=== PATIENT | male | born 1970 | race Two or more races ===

== ENCOUNTER 2023-09-05 21:12 | Inpatient (IN) | payer OTHER ==
[~2023-09-05] VITALS: Ht 172.7 cm; Wt 179.2 kg
[2023-09-05 22:55] LABS: BASOPHILS # (AUTO) 0.1 K/uL (0.0-0.2); BASOPHILS % (AUTO) 0.5 % (0.0-2.0); EOSINOPHILS # (AUTO) 0.2 K/uL (0.0-0.7); EOSINOPHILS % (AUTO) 1.1 % (0.0-6.0); HEMATOCRIT 36 % (39-51); HEMOGLOBIN 11.9 g/dL (13.5-17.5); LYMPHOCYTES # (AUTO) 1.5 K/uL (0.8-4.8); LYMPHOCYTES % (AUTO) 8.8 % (20.0-44.0); MEAN CORPUSCULAR HEMOGLOBIN 29 PG (26.0-33.0); MEAN CORPUSCULAR HGB CONC 33 g/dl (31.0-36.0); MEAN CORPUSCULAR VOLUME 88 fL (80-96); MONOCYTES # (AUTO) 1.6 K/uL (0.1-1.30); MONOCYTES % (AUTO) 9.9 % (2.0-12.0); NEUTROPHILS # (AUTO) 13.3 K/uL (1.8-8.9); NEUTROPHILS % (AUTO) 79.7 % (43.0-81.0); PLATELET COUNT (AUTO) 268 K/uL (150-450); RED BLOOD CELL COUNT(AUTO) 4.11 MIL/uL (4.5-6.0); RED CELL DISTRIBUTION WIDTH 15.6 % (11.5-15.0); WHITE BLOOD COUNT (AUTO) 16.6 K/uL (4.3-11.0)
[2023-09-05 23:05] LABS: INR 1.13 (0.91-1.10); PARTIAL THROMBOPLASTIN TIME 28.2 SEC (24.3-34.3); PROTHROMBIN TIME 11.9 SECS (9.2-11.1)
[2023-09-05 23:09] LABS: CALCIUM, SERUM 8.5 mg/dL (8.5-10.1); CARBON DIOXIDE 35 mmol/L (21-32); CHLORIDE 91 mmol/L (98-107); GLUCOSE 341 mg/dL (74-106); POTASSIUM 4.5 mmol/L (3.5-5.1); SODIUM SERUM 124 mmol/L (136-145); UREA NITROGEN, BLOOD 22 mg/dL (7-18)
[2023-09-05 23:16] LABS: LACTIC ACID 1.4 mmol/L (0.4-2.0)
[2023-09-05 23:22] LABS: ALANINE AMINOTRANSFERASE 22 U/L (12-78); ALKALINE PHOSPHATASE 170 U/L (46-116); ASPARTATE AMINOTRANSFERASE 33 U/L (15-37); BILIRUBIN,DIRECT 0.2 mg/dL (0.0-0.2); BILIRUBIN,TOTAL 0.6 mg/dL (0.2-1.0); TOTAL PROTEIN, SERUM 7.8 g/dL (6.4-8.2)
[2023-09-05 23:25] LABS: ALBUMIN 1.3 g/dL (3.4-5.0)
[2023-09-05] MEDS ORDERED: IV NS 0.9% 1,000 ML BAG IV ONE (23:30)
[2023-09-05] MEDS ORDERED: VANCOMYCIN 1 GM in IV D5W 250 ML IV ONE (23:30)
[2023-09-05] MEDS ORDERED: CEFEPIME 1 GM in IV D5W 50 ML IV ONE (23:30)
[2023-09-05] MEDS ORDERED: LIDOCAINE HCL/PF 1% 30 ML VIAL TP ONE (23:30)
[2023-09-05] MEDS ORDERED: LIDOCAINE 0.5% HCL 50 ML VIAL ONE (23:33)
[2023-09-05] MEDS ORDERED: LIDOCAINE HCL/MPF 1% 30 ML VIAL IJ ONE (23:35)
[2023-09-05] MEDS ORDERED: CEFEPIME 1 GM VIAL ONE (23:38)
[2023-09-05] MEDS ORDERED: VANCOMYCIN 1 GM /D5W 250 ML PB IV ONE (23:39)
[2023-09-05 23:53] LABS: APPEARANCE,URINE CLOUDY (CLEAR); BILIRUBIN,URINE NEGATIVE (NEGATIVE); BLOOD, URINE 2+ Ery/uL (NEGATIVE); COLOR,URINE DARK YELLOW (YELLOW); KETONES,URINE NEGATIVE (NEGATIVE); LEUKOCYTE ESTERASE ,URINE NEGATIVE (NEGATIVE); NITRITE, URINE POSITIVE (NEGATIVE); PH,URINE 5.5 (5.0-8.0); PROTEIN,URINE 3+ mg/dl (NEGATIVE); UGLUCOSE 1+ mg/dL (NEGATIVE)
[2023-09-05 23:57] LABS: ADD URINE CULTURE YES; BACTERIA,URINE Moderate /HPF (None Seen); SQUAMOUS EPITHELIAL CELL,UR Rare /HPF (None Seen); WBC,URINE 21-50 /HPF (0-3)
[2023-09-06] MEDS ORDERED: MAGNESIUM HYDROXIDE 30 ML UDC PO PRN (00:30)
[2023-09-06] MEDS ORDERED: MAG HYDROX/AL HYDROX/SIMETH 30 ML UDC PO PRN (00:30)
[2023-09-06] MEDS ORDERED: ACETAMINOPHEN 325 MG TABLET PO PRN (00:30)
[2023-09-06] MEDS ORDERED: ONDANSETRON HCL/PF 4 MG/2 ML VIAL IVP PRN (00:30)
[2023-09-06] MEDS ORDERED: Z GUARD REMEDY 4 OZ OINT TP PRN (00:30)
[2023-09-06] MEDS ORDERED: DEXTROSE 50%-WATER 50 ML DISP.SYRIN IV PRN ×2 (00:30→12:00)
[2023-09-06] MEDS ORDERED: TEMAZEPAM 15 MG CAPSULE PO PRN (00:30)
[2023-09-06 01:30] VITALS: BP 125/67; TEMP 100.2; O2SAT 97
[2023-09-06 01:40] VITALS: BP 125/67; TEMP 100.2; O2SAT 97
[2023-09-06] MEDS ORDERED: VANCOMYCIN 1 GM in IV D5W 250ml IV ONE (02:00)
[2023-09-06] MEDS ORDERED: VANCOMYCIN 1 GM /D5W 250 ML PB IV ONE (04:51)
[2023-09-06] MEDS: BLOOD SUGAR DIAGNOSTIC 1 EACH STRIP IN SCH ×5 (06:19→21:38)
[2023-09-06] MEDS: INSULIN REGULAR, HUMAN 100 UNIT/ML 3 ML VIAL SQ PRN ×3 (06:22→16:33)
[2023-09-06] MEDS: PANTOPRAZOLE 40 MG TABLET.DR PO SCH (07:42)
[2023-09-06] MEDS: CEFEPIME 1 GM in IV D5W 50 ML IV SCH ×2 (08:49→20:41)
[2023-09-06] MEDS: VANCOMYCIN 1.25 GM in IV D5W 250 ML IV SCH ×2 (09:38→21:25)
[2023-09-06] MEDS: HYDROCODONE/APAP 10/325MG TABLET PO PRN (09:55)
[2023-09-06] MEDS ORDERED: LISI20TA30 PO (10:12)
[2023-09-06] MEDS ORDERED: FURO40TA5 PO (10:12)
[2023-09-06] MEDS ORDERED: GABA600T12 PO (10:12)
[2023-09-06] MEDS ORDERED: OMEP40CA21 PO (10:12)
[2023-09-06] MEDS ORDERED: METF-440 PO (10:12)
[2023-09-06] MEDS ORDERED: CARV6.252 PO (10:12)
[2023-09-06] MEDS ORDERED: ALBU18HF2 INH (10:12)
[2023-09-06] MEDS ORDERED: BUPR200T3 PO (10:12)
[2023-09-06] MEDS ORDERED: FLUO20CA36 PO (10:12)
[2023-09-06] MEDS ORDERED: METH10TA2 PO (10:12)
[2023-09-06] MEDS ORDERED: ALBUTEROL FS 2.5 MG/3 ML VIAL.NEB NEB PRN (12:00)
[2023-09-06] MEDS: CARVEDILOL 6.25 MG TABLET PO SCH (16:18)
[2023-09-06] MEDS: GABAPENTIN 300 MG CAPSULE PO SCH (16:20)
[2023-09-06] MEDS: IV NS 0.9% 1,000 ML IV PRN (18:04)
[2023-09-06 20:42] VITALS: BP 100/62; TEMP 97.7; O2SAT 96
[2023-09-06] MEDS: *INSULIN REGULAR(HUMULIN R)HUM 100 UNIT/ML VIAL SQ PRN (21:44)
[2023-09-07] MEDS: IV NS 0.9% 1,000 ML IV PRN (05:18)
[2023-09-07] MEDS: BLOOD SUGAR DIAGNOSTIC 1 EACH STRIP IN SCH ×4 (06:36→21:00)
[2023-09-07] MEDS: INSULIN REGULAR, HUMAN 100 UNIT/ML 3 ML VIAL SQ PRN ×3 (06:37→16:50)
[2023-09-07] MEDS ORDERED: Medication Not On Formulary EA (Omeprazole 40 MG) PO SCH (07:30)
[2023-09-07 07:35] LABS: BASOPHILS % (AUTO) 0.4 % (0.0-2.0); EOSINOPHILS # (AUTO) 0.2 K/uL (0.0-0.7); EOSINOPHILS % (AUTO) 2.5 % (0.0-6.0); HEMATOCRIT 31 % (39-51); HEMOGLOBIN 10.5 g/dL (13.5-17.5); LYMPHOCYTES # (AUTO) 1.3 K/uL (0.8-4.8); MEAN CORPUSCULAR HEMOGLOBIN 30 PG (26.0-33.0); MEAN CORPUSCULAR HGB CONC 34 g/dl (31.0-36.0); MEAN CORPUSCULAR VOLUME 88 fL (80-96); MONOCYTES % (AUTO) 9.9 % (2.0-12.0); NEUTROPHILS # (AUTO) 7.3 K/uL (1.8-8.9); NEUTROPHILS % (AUTO) 74.2 % (43.0-81.0); PLATELET COUNT (AUTO) 249 K/uL (150-450); RED BLOOD CELL COUNT(AUTO) 3.57 MIL/uL (4.5-6.0); RED CELL DISTRIBUTION WIDTH 15.1 % (11.5-15.0); WHITE BLOOD COUNT (AUTO) 9.8 K/uL (4.3-11.0)
[2023-09-07] MEDS: PANTOPRAZOLE 40 MG TABLET.DR PO SCH (07:48)
[2023-09-07 08:00] VITALS: BP 118/62; TEMP 97.7; O2SAT 96
[2023-09-07 08:03] LABS: THYROID STIMULATING HORMONE 2.926 uIU/mL (0.358-3.74); URIC ACID 6.1 mg/dL (2.6-7.2)
[2023-09-07 08:16] LABS: CREATININE 1.5 mg/dL (0.6-1.3); MAGNESIUM 1.5 mg/dL (1.8-2.4); PHOSPHORUS 4.1 mg/dL (2.5-4.9); POTASSIUM 4.7 mmol/L (3.5-5.1)
[2023-09-07] MEDS ORDERED: FUROSEMIDE 40 MG TABLET PO SCH (09:00)
[2023-09-07] MEDS ORDERED: LISINOPRIL (20MG) 20 MG TABLET PO SCH (09:00)
[2023-09-07] MEDS ORDERED: FLUOXETINE HCL 20 MG CAPSULE PO SCH (09:00)
[2023-09-07] MEDS: CEFEPIME 1 GM in IV D5W 50 ML IV SCH ×2 (09:08→20:06)
[2023-09-07] MEDS: GABAPENTIN 300 MG CAPSULE PO SCH ×2 (09:08→16:47)
[2023-09-07] MEDS: buPROPion SR 100 MG TABLET.ER PO SCH (09:09)
[2023-09-07] MEDS: METHADONE HCL 10 MG TABLET PO SCH (09:10)
[2023-09-07] MEDS: CARVEDILOL 6.25 MG TABLET PO SCH ×2 (09:10→16:47)
[2023-09-07] MEDS: NICOTINE PATCH (21MG) 21 MG PATCH.TD24 TD SCH (09:49)
[2023-09-07] MEDS ORDERED: MAGNESIUM OXIDE 400 MG TABLET PO ONE (11:00)
[2023-09-07] MEDS: HYDROCODONE/APAP 10/325MG TABLET PO PRN ×2 (11:14→23:21)
[2023-09-07 16:00] VITALS: BP 106/62; TEMP 97.7; O2SAT 97
[2023-09-07 20:00] VITALS: BP 106/60; TEMP 98.7; O2SAT 95
[2023-09-07] MEDS: *INSULIN REGULAR(HUMULIN R)HUM 100 UNIT/ML VIAL SQ PRN (21:03)
[2023-09-07] MEDS: VANCOMYCIN 1 GM in IV D5W 250 ML IV SCH (21:30)
[2023-09-08] MEDS: BLOOD SUGAR DIAGNOSTIC 1 EACH STRIP IN SCH ×4 (06:26→22:43)
[2023-09-08] MEDS: INSULIN REGULAR, HUMAN 100 UNIT/ML 3 ML VIAL SQ PRN ×3 (06:28→16:55)
[2023-09-08 06:46] LABS: BASOPHILS % (AUTO) 0.6 % (0.0-2.0); EOSINOPHILS # (AUTO) 0.2 K/uL (0.0-0.7); EOSINOPHILS % (AUTO) 2.4 % (0.0-6.0); HEMATOCRIT 29 % (39-51); HEMOGLOBIN 9.7 g/dL (13.5-17.5); LYMPHOCYTES # (AUTO) 1.4 K/uL (0.8-4.8); LYMPHOCYTES % (AUTO) 18.4 % (20.0-44.0); MEAN CORPUSCULAR HEMOGLOBIN 29 PG (26.0-33.0); MEAN CORPUSCULAR HGB CONC 34 g/dl (31.0-36.0); MEAN CORPUSCULAR VOLUME 87 fL (80-96); MONOCYTES # (AUTO) 0.9 K/uL (0.1-1.30); MONOCYTES % (AUTO) 12.5 % (2.0-12.0); NEUTROPHILS # (AUTO) 4.9 K/uL (1.8-8.9); NEUTROPHILS % (AUTO) 66.1 % (43.0-81.0); PLATELET COUNT (AUTO) 227 K/uL (150-450); WHITE BLOOD COUNT (AUTO) 7.4 K/uL (4.3-11.0)
[2023-09-08 07:32] LABS: CREATININE 1.5 mg/dL (0.6-1.3); MAGNESIUM 1.9 mg/dL (1.8-2.4); PHOSPHORUS 3.8 mg/dL (2.5-4.9); POTASSIUM 4.9 mmol/L (3.5-5.1)
[2023-09-08] MEDS: PANTOPRAZOLE 40 MG TABLET.DR PO SCH (07:59)
[2023-09-08 08:30] VITALS: BP 111/67; TEMP 97.7; O2SAT 96
[2023-09-08] MEDS: CEFEPIME 1 GM in IV D5W 50 ML IV SCH ×2 (09:23→22:06)
[2023-09-08] MEDS: NICOTINE PATCH (21MG) 21 MG PATCH.TD24 TD SCH (09:30)
[2023-09-08] MEDS: GABAPENTIN 300 MG CAPSULE PO SCH ×2 (09:30→16:55)
[2023-09-08] MEDS: buPROPion SR 100 MG TABLET.ER PO SCH (09:31)
[2023-09-08] MEDS: METHADONE HCL 10 MG TABLET PO SCH (09:32)
[2023-09-08] MEDS: CARVEDILOL 6.25 MG TABLET PO SCH ×2 (09:33→16:47)
[2023-09-08] MEDS: VANCOMYCIN 1 GM in IV D5W 250 ML IV SCH ×2 (10:10→21:00)
[2023-09-08 18:30] VITALS: BP 107/69; TEMP 97.6; O2SAT 97
[2023-09-08] MEDS: *INSULIN REGULAR(HUMULIN R)HUM 100 UNIT/ML VIAL SQ PRN (22:55)
[2023-09-09] MEDS: INSULIN REGULAR, HUMAN 100 UNIT/ML 3 ML VIAL SQ PRN ×3 (06:21→17:19)
[2023-09-09] MEDS: BLOOD SUGAR DIAGNOSTIC 1 EACH STRIP IN SCH ×4 (06:32→21:28)
[2023-09-09 07:00] VITALS: BP 118/85; TEMP 98.4; O2SAT 100
[2023-09-09 07:35] LABS: BASOPHILS # (AUTO) 0.1 K/uL (0.0-0.2); BASOPHILS % (AUTO) 0.8 % (0.0-2.0); EOSINOPHILS # (AUTO) 0.2 K/uL (0.0-0.7); EOSINOPHILS % (AUTO) 2.3 % (0.0-6.0); HEMATOCRIT 30 % (39-51); LYMPHOCYTES # (AUTO) 1.4 K/uL (0.8-4.8); LYMPHOCYTES % (AUTO) 17.9 % (20.0-44.0); MEAN CORPUSCULAR HEMOGLOBIN 29 PG (26.0-33.0); MEAN CORPUSCULAR HGB CONC 33 g/dl (31.0-36.0); MEAN CORPUSCULAR VOLUME 88 fL (80-96); MONOCYTES # (AUTO) 0.8 K/uL (0.1-1.30); MONOCYTES % (AUTO) 10.6 % (2.0-12.0); NEUTROPHILS # (AUTO) 5.3 K/uL (1.8-8.9); NEUTROPHILS % (AUTO) 68.4 % (43.0-81.0); PLATELET COUNT (AUTO) 253 K/uL (150-450); RED BLOOD CELL COUNT(AUTO) 3.41 MIL/uL (4.5-6.0); RED CELL DISTRIBUTION WIDTH 15.1 % (11.5-15.0); WHITE BLOOD COUNT (AUTO) 7.8 K/uL (4.3-11.0)
[2023-09-09] MEDS: PANTOPRAZOLE 40 MG TABLET.DR PO SCH (08:06)
[2023-09-09] MEDS: METHADONE HCL 10 MG TABLET PO SCH (08:07)
[2023-09-09 08:11] LABS: CALCIUM, SERUM 8.1 mg/dL (8.5-10.1); CREATININE 1.4 mg/dL (0.6-1.3); POTASSIUM 5.2 mmol/L (3.5-5.1)
[2023-09-09] MEDS: GABAPENTIN 300 MG CAPSULE PO SCH ×2 (08:26→17:16)
[2023-09-09] MEDS: NICOTINE PATCH (21MG) 21 MG PATCH.TD24 TD SCH (08:26)
[2023-09-09] MEDS: CEFEPIME 1 GM in IV D5W 50 ML IV SCH ×2 (08:27→22:58)
[2023-09-09] MEDS: CARVEDILOL 6.25 MG TABLET PO SCH ×2 (08:27→17:14)
[2023-09-09] MEDS: buPROPion SR 100 MG TABLET.ER PO SCH (08:27)
[2023-09-09] MEDS ORDERED: SULF1TAB48 PO (10:30)
[2023-09-09] MEDS ORDERED: CIPR-262 PO (10:30)
[2023-09-09] MEDS: VANCOMYCIN 0.75 GM in IV D5W 250 ML IV SCH ×2 (10:44→23:23)
[2023-09-09] MEDS ORDERED: LIDOCAINE 1%-EPI 1:100,000 20 ML VIAL TP STA (12:58)
[2023-09-09] MEDS: HYDROCODONE/APAP 10/325MG TABLET PO PRN (14:03)
[2023-09-09 16:00] VITALS: BP 109/74; TEMP 98.6; O2SAT 100
[2023-09-09 20:22] VITALS: BP 118/56; TEMP 99.2; O2SAT 98
[2023-09-09] MEDS: *INSULIN REGULAR(HUMULIN R)HUM 100 UNIT/ML VIAL SQ PRN (21:30)
[2023-09-10] MEDS: BLOOD SUGAR DIAGNOSTIC 1 EACH STRIP IN SCH ×4 (06:42→21:42)
[2023-09-10] MEDS: INSULIN REGULAR, HUMAN 100 UNIT/ML 3 ML VIAL SQ PRN ×4 (06:43→22:09)
[2023-09-10 08:00] VITALS: BP 87/46; TEMP 98.6; O2SAT 97
[2023-09-10] MEDS: PANTOPRAZOLE 40 MG TABLET.DR PO SCH (08:11)
[2023-09-10] MEDS: CARVEDILOL 6.25 MG TABLET PO SCH ×3 (09:00→18:25)
[2023-09-10] MEDS ORDERED: SODIUM POLYSTYRENE SULFONATE 15 G/60 ML BOTTLE PO ONE (09:00)
[2023-09-10 09:05] VITALS: BP 107/40
[2023-09-10] MEDS: NICOTINE PATCH (21MG) 21 MG PATCH.TD24 TD SCH (09:17)
[2023-09-10] MEDS: buPROPion SR 100 MG TABLET.ER PO SCH (09:17)
[2023-09-10] MEDS: GABAPENTIN 300 MG CAPSULE PO SCH ×3 (09:18→16:30)
[2023-09-10] MEDS: METHADONE HCL 10 MG TABLET PO SCH (09:19)
[2023-09-10] MEDS: CEFEPIME 1 GM in IV D5W 50 ML IV SCH (09:40)
[2023-09-10 13:11] LABS: BILIRUBIN,TOTAL 0.2 mg/dL (0.2-1.0); CALCIUM, SERUM 8.4 mg/dL (8.5-10.1); CREATININE 1.4 mg/dL (0.6-1.3); POTASSIUM 5.8 mmol/L (3.5-5.1); TOTAL PROTEIN, SERUM 7.2 g/dL (6.4-8.2)
[2023-09-10 13:26] LABS: ALBUMIN 1.2 g/dL (3.4-5.0)
[2023-09-10] MEDS: VANCOMYCIN 0.75 GM in IV D5W 250 ML IV SCH (13:58)
[2023-09-10] MEDS ORDERED: MEROPENEM 1 G in IV NS 0.9% 100 ML IV SCH (14:00)
[2023-09-10 15:46] VITALS: BP 133/62; TEMP 97.4; O2SAT 94
[2023-09-10] MEDS: HYDROCODONE/APAP 10/325MG TABLET PO PRN (18:25)
[2023-09-10 20:00] VITALS: BP 132/61; TEMP 98.2; O2SAT 98
[2023-09-10] MEDS: MEROPENEM 1 G in IV NS 0.9% 100 ML IV SCH (20:24)
[2023-09-11] MEDS ORDERED: VANCOMYCIN 0.75 GM in IV D5W 250 ML IV SCH (02:00)
[2023-09-11] MEDS ORDERED: VANCOMYCIN 500 MG in IV D5W 100ml IV SCH (02:00)
[2023-09-11] MEDS: INSULIN REGULAR, HUMAN 100 UNIT/ML 3 ML VIAL SQ PRN ×4 (06:37→21:19)
[2023-09-11] MEDS: BLOOD SUGAR DIAGNOSTIC 1 EACH STRIP IN SCH ×4 (06:43→21:18)
[2023-09-11 07:21] LABS: BASOPHILS % (AUTO) 0.3 % (0.0-2.0); EOSINOPHILS # (AUTO) 0.2 K/uL (0.0-0.7); EOSINOPHILS % (AUTO) 2.6 % (0.0-6.0); HEMATOCRIT 31 % (39-51); HEMOGLOBIN 10.6 g/dL (13.5-17.5); LYMPHOCYTES # (AUTO) 1.8 K/uL (0.8-4.8); LYMPHOCYTES % (AUTO) 24.6 % (20.0-44.0); MEAN CORPUSCULAR HEMOGLOBIN 30 PG (26.0-33.0); MEAN CORPUSCULAR HGB CONC 34 g/dl (31.0-36.0); MEAN CORPUSCULAR VOLUME 89 fL (80-96); MONOCYTES # (AUTO) 0.8 K/uL (0.1-1.30); MONOCYTES % (AUTO) 10.1 % (2.0-12.0); NEUTROPHILS # (AUTO) 4.6 K/uL (1.8-8.9); NEUTROPHILS % (AUTO) 62.4 % (43.0-81.0); PLATELET COUNT (AUTO) 254 K/uL (150-450); RED BLOOD CELL COUNT(AUTO) 3.53 MIL/uL (4.5-6.0); RED CELL DISTRIBUTION WIDTH 15.5 % (11.5-15.0); WHITE BLOOD COUNT (AUTO) 7.4 K/uL (4.3-11.0)
[2023-09-11 07:30] VITALS: BP 137/72; TEMP 97.9; O2SAT 97
[2023-09-11] MEDS: PANTOPRAZOLE 40 MG TABLET.DR PO SCH (08:10)
[2023-09-11] MEDS: METHADONE HCL 10 MG TABLET PO SCH (08:10)
[2023-09-11] MEDS: GABAPENTIN 300 MG CAPSULE PO SCH ×2 (08:10→17:27)
[2023-09-11] MEDS: buPROPion SR 100 MG TABLET.ER PO SCH (08:10)
[2023-09-11] MEDS: NICOTINE PATCH (21MG) 21 MG PATCH.TD24 TD SCH (08:10)
[2023-09-11] MEDS: HYDROCODONE/APAP 10/325MG TABLET PO PRN ×4 (08:11→21:25)
[2023-09-11] MEDS: CARVEDILOL 6.25 MG TABLET PO SCH ×2 (08:12→17:26)
[2023-09-11 08:18] LABS: CALCIUM, SERUM 8.6 mg/dL (8.5-10.1); CREATININE 1.1 mg/dL (0.6-1.3); POTASSIUM 5.8 mmol/L (3.5-5.1)
[2023-09-11 10:00] VITALS: BP 137/72; TEMP 97.9; O2SAT 97
[2023-09-11] MEDS: MEROPENEM 1 G in IV NS 0.9% 100 ML IV SCH ×2 (15:02→20:27)
[2023-09-11 16:00] VITALS: BP 124/72; TEMP 98.2; O2SAT 97
[2023-09-11 22:42] VITALS: O2SAT 98
[2023-09-11 22:52] VITALS: O2SAT 100
[2023-09-12] MEDS: BLOOD SUGAR DIAGNOSTIC 1 EACH STRIP IN SCH ×4 (06:37→22:02)
[2023-09-12] MEDS: INSULIN REGULAR, HUMAN 100 UNIT/ML 3 ML VIAL SQ PRN ×2 (06:38→13:09)
[2023-09-12 07:07] LABS: CALCIUM, SERUM 8.5 mg/dL (8.5-10.1); CREATININE 1.3 mg/dL (0.6-1.3); POTASSIUM 5.8 mmol/L (3.5-5.1)
[2023-09-12] MEDS ORDERED: FUROSEMIDE 20 MG/2 ML VIAL IV SCH (07:30)
[2023-09-12] MEDS ORDERED: SODIUM POLYSTYRENE SULFONATE 15 G/60 ML BOTTLE PO ONE (07:30)
[2023-09-12 08:30] VITALS: BP 118/57; TEMP 97.7; O2SAT 95
[2023-09-12] MEDS: METHADONE HCL 10 MG TABLET PO SCH (09:18)
[2023-09-12] MEDS: buPROPion SR 100 MG TABLET.ER PO SCH (09:18)
[2023-09-12] MEDS: GABAPENTIN 300 MG CAPSULE PO SCH ×2 (09:18→16:53)
[2023-09-12] MEDS: NICOTINE PATCH (21MG) 21 MG PATCH.TD24 TD SCH (09:18)
[2023-09-12] MEDS: CARVEDILOL 6.25 MG TABLET PO SCH ×2 (09:19→17:05)
[2023-09-12] MEDS: PANTOPRAZOLE 40 MG TABLET.DR PO SCH (09:19)
[2023-09-12] MEDS: MEROPENEM 1 G in IV NS 0.9% 100 ML IV SCH ×2 (09:56→21:49)
[2023-09-12] MEDS: HYDROCODONE/APAP 5/325MG TABLET PO PRN (11:01)
[2023-09-12 16:00] VITALS: BP_SYST 109; BP_SYST 124; BP_DIAS 64; BP_DIAS 82; TEMP 97.5; TEMP 98.1; O2SAT 94; O2SAT 96
[2023-09-12 20:00] VITALS: BP 128/78; TEMP 98.4; O2SAT 96
[2023-09-12] MEDS: HYDROCODONE/APAP 10/325MG TABLET PO PRN (21:50)
[2023-09-12] MEDS: *INSULIN REGULAR(HUMULIN R)HUM 100 UNIT/ML VIAL SQ PRN (22:06)
[2023-09-13] MEDS: BLOOD SUGAR DIAGNOSTIC 1 EACH STRIP IN SCH ×4 (07:10→22:01)
[2023-09-13] MEDS: HYDROCODONE/APAP 10/325MG TABLET PO PRN (07:10)
[2023-09-13] MEDS: INSULIN REGULAR, HUMAN 100 UNIT/ML 3 ML VIAL SQ PRN ×3 (07:18→17:30)
[2023-09-13 07:30] VITALS: BP 129/56; TEMP 98.1; O2SAT 94
[2023-09-13] MEDS: PANTOPRAZOLE 40 MG TABLET.DR PO SCH (08:37)
[2023-09-13] MEDS: buPROPion SR 100 MG TABLET.ER PO SCH (08:37)
[2023-09-13] MEDS: CARVEDILOL 6.25 MG TABLET PO SCH ×2 (08:37→17:36)
[2023-09-13] MEDS: GABAPENTIN 300 MG CAPSULE PO SCH ×2 (08:37→17:36)
[2023-09-13] MEDS: METHADONE HCL 10 MG TABLET PO SCH (08:38)
[2023-09-13] MEDS: MEROPENEM 1 G in IV NS 0.9% 100 ML IV SCH ×2 (08:38→20:02)
[2023-09-13 09:03] LABS: BASOPHILS # (AUTO) 0.1 K/uL (0.0-0.2); BASOPHILS % (AUTO) 0.9 % (0.0-2.0); EOSINOPHILS # (AUTO) 0.2 K/uL (0.0-0.7); EOSINOPHILS % (AUTO) 2.7 % (0.0-6.0); HEMATOCRIT 33 % (39-51); HEMOGLOBIN 10.7 g/dL (13.5-17.5); LYMPHOCYTES # (AUTO) 1.8 K/uL (0.8-4.8); LYMPHOCYTES % (AUTO) 27.6 % (20.0-44.0); MEAN CORPUSCULAR HEMOGLOBIN 29 PG (26.0-33.0); MEAN CORPUSCULAR HGB CONC 33 g/dl (31.0-36.0); MEAN CORPUSCULAR VOLUME 89 fL (80-96); MONOCYTES # (AUTO) 0.6 K/uL (0.1-1.30); MONOCYTES % (AUTO) 8.9 % (2.0-12.0); NEUTROPHILS % (AUTO) 59.9 % (43.0-81.0); PLATELET COUNT (AUTO) 237 K/uL (150-450); RED BLOOD CELL COUNT(AUTO) 3.68 MIL/uL (4.5-6.0); RED CELL DISTRIBUTION WIDTH 15.5 % (11.5-15.0); WHITE BLOOD COUNT (AUTO) 6.6 K/uL (4.3-11.0)
[2023-09-13 10:23] LABS: BILIRUBIN,TOTAL 0.2 mg/dL (0.2-1.0); CALCIUM, SERUM 8.4 mg/dL (8.5-10.1); CREATININE 1.2 mg/dL (0.6-1.3); MAGNESIUM 1.9 mg/dL (1.8-2.4); PHOSPHORUS 3.9 mg/dL (2.5-4.9); POTASSIUM 5.8 mmol/L (3.5-5.1); TOTAL PROTEIN, SERUM 7.7 g/dL (6.4-8.2)
[2023-09-13] MEDS: NICOTINE PATCH (21MG) 21 MG PATCH.TD24 TD SCH (10:34)
[2023-09-13 10:40] LABS: ALBUMIN 1.3 g/dL (3.4-5.0)
[2023-09-13] MEDS ORDERED: SODIUM POLYSTYRENE SULFONATE 15 G/60 ML BOTTLE PO ONE (11:00)
[2023-09-13 16:00] VITALS: BP 131/73; TEMP 97.7; O2SAT 96
[2023-09-13] MEDS: HYDROCODONE/APAP 5/325MG TABLET PO PRN ×2 (17:41→22:18)
[2023-09-13 20:00] VITALS: BP 101/82; TEMP 97.9
[2023-09-13 21:49] VITALS: BP 130/73; TEMP 98.4; O2SAT 96
[2023-09-13] MEDS: *INSULIN REGULAR(HUMULIN R)HUM 100 UNIT/ML VIAL SQ PRN (22:08)
[2023-09-14] MEDS: MEROPENEM 1 G in IV NS 0.9% 100 ML IV SCH ×3 (05:49→22:41)
[2023-09-14] MEDS: HYDROCODONE/APAP 5/325MG TABLET PO PRN ×2 (06:33→15:42)
[2023-09-14] MEDS: BLOOD SUGAR DIAGNOSTIC 1 EACH STRIP IN SCH ×4 (06:34→22:22)
[2023-09-14] MEDS: INSULIN REGULAR, HUMAN 100 UNIT/ML 3 ML VIAL SQ PRN ×3 (06:40→17:11)
[2023-09-14 07:00] VITALS: BP 114/54; TEMP 98.6; O2SAT 99
[2023-09-14] MEDS: PANTOPRAZOLE 40 MG TABLET.DR PO SCH (09:11)
[2023-09-14] MEDS: METHADONE HCL 10 MG TABLET PO SCH (09:12)
[2023-09-14] MEDS: buPROPion SR 100 MG TABLET.ER PO SCH (09:12)
[2023-09-14] MEDS: GABAPENTIN 300 MG CAPSULE PO SCH ×2 (09:12→16:33)
[2023-09-14] MEDS: NICOTINE PATCH (21MG) 21 MG PATCH.TD24 TD SCH (09:13)
[2023-09-14] MEDS: CARVEDILOL 6.25 MG TABLET PO SCH ×2 (09:14→16:59)
[2023-09-14 09:41] LABS: BASOPHILS # (AUTO) 0.1 K/uL (0.0-0.2); BASOPHILS % (AUTO) 0.9 % (0.0-2.0); EOSINOPHILS # (AUTO) 0.2 K/uL (0.0-0.7); EOSINOPHILS % (AUTO) 2.7 % (0.0-6.0); HEMATOCRIT 31 % (39-51); HEMOGLOBIN 9.2 g/dL (13.5-17.5); LYMPHOCYTES # (AUTO) 1.9 K/uL (0.8-4.8); LYMPHOCYTES % (AUTO) 28.5 % (20.0-44.0); MEAN CORPUSCULAR HEMOGLOBIN 29 PG (26.0-33.0); MEAN CORPUSCULAR HGB CONC 30 g/dl (31.0-36.0); MEAN CORPUSCULAR VOLUME 95 fL (80-96); MONOCYTES # (AUTO) 0.5 K/uL (0.1-1.30); MONOCYTES % (AUTO) 7.9 % (2.0-12.0); NEUTROPHILS # (AUTO) 4.1 K/uL (1.8-8.9); PLATELET COUNT (AUTO) 118 K/uL (150-450); RED BLOOD CELL COUNT(AUTO) 3.22 MIL/uL (4.5-6.0); RED CELL DISTRIBUTION WIDTH 16.6 % (11.5-15.0); WHITE BLOOD COUNT (AUTO) 6.8 K/uL (4.3-11.0)
[2023-09-14 09:51] LABS: CALCIUM, SERUM 8.4 mg/dL (8.5-10.1); CREATININE 1.2 mg/dL (0.6-1.3); POTASSIUM 5.4 mmol/L (3.5-5.1)
[2023-09-14] MEDS ORDERED: SODIUM POLYSTYRENE SULFONATE 15 G/60 ML BOTTLE PO ONE (10:30)
[2023-09-14 16:00] VITALS: BP 134/79; TEMP 98.1; O2SAT 100
[2023-09-14] MEDS: HYDROCODONE/APAP 10/325MG TABLET PO PRN (17:37)
[2023-09-14 20:00] VITALS: BP 144/72; TEMP 97.7
[2023-09-14] MEDS: *INSULIN REGULAR(HUMULIN R)HUM 100 UNIT/ML VIAL SQ PRN (22:32)
[2023-09-15] MEDS: MEROPENEM 1 G in IV NS 0.9% 100 ML IV SCH ×3 (04:43→20:19)
[2023-09-15 07:00] VITALS: BP 139/75; TEMP 98.6; O2SAT 97
[2023-09-15] MEDS: BLOOD SUGAR DIAGNOSTIC 1 EACH STRIP IN SCH ×4 (07:05→21:14)
[2023-09-15] MEDS: PANTOPRAZOLE 40 MG TABLET.DR PO SCH (07:43)
[2023-09-15 07:55] LABS: BASOPHILS # (AUTO) 0.1 K/uL (0.0-0.2); BASOPHILS % (AUTO) 0.9 % (0.0-2.0); EOSINOPHILS # (AUTO) 0.1 K/uL (0.0-0.7); EOSINOPHILS % (AUTO) 2.4 % (0.0-6.0); HEMATOCRIT 32 % (39-51); HEMOGLOBIN 10.5 g/dL (13.5-17.5); LYMPHOCYTES # (AUTO) 1.7 K/uL (0.8-4.8); LYMPHOCYTES % (AUTO) 26.8 % (20.0-44.0); MEAN CORPUSCULAR HEMOGLOBIN 29 PG (26.0-33.0); MEAN CORPUSCULAR HGB CONC 33 g/dl (31.0-36.0); MEAN CORPUSCULAR VOLUME 88 fL (80-96); MONOCYTES # (AUTO) 0.6 K/uL (0.1-1.30); MONOCYTES % (AUTO) 8.9 % (2.0-12.0); NEUTROPHILS # (AUTO) 3.8 K/uL (1.8-8.9); PLATELET COUNT (AUTO) 186 K/uL (150-450); RED BLOOD CELL COUNT(AUTO) 3.61 MIL/uL (4.5-6.0); RED CELL DISTRIBUTION WIDTH 15.5 % (11.5-15.0); WHITE BLOOD COUNT (AUTO) 6.2 K/uL (4.3-11.0)
[2023-09-15 08:08] LABS: CALCIUM, SERUM 6.9 mg/dL (8.5-10.1); CREATININE 1.1 mg/dL (0.6-1.3); POTASSIUM 4.9 mmol/L (3.5-5.1)
[2023-09-15] MEDS: METHADONE HCL 10 MG TABLET PO SCH (08:13)
[2023-09-15] MEDS: buPROPion SR 100 MG TABLET.ER PO SCH (08:14)
[2023-09-15] MEDS: GABAPENTIN 300 MG CAPSULE PO SCH ×2 (08:14→16:21)
[2023-09-15] MEDS: CARVEDILOL 6.25 MG TABLET PO SCH ×2 (08:14→16:22)
[2023-09-15] MEDS: NICOTINE PATCH (21MG) 21 MG PATCH.TD24 TD SCH (08:52)
[2023-09-15] MEDS: HYDROCODONE/APAP 10/325MG TABLET PO PRN (10:50)
[2023-09-15] MEDS: INSULIN REGULAR, HUMAN 100 UNIT/ML 3 ML VIAL SQ PRN ×2 (11:52→16:58)
[2023-09-15 16:00] VITALS: BP 141/61; TEMP 98.6; O2SAT 99
[2023-09-15] MEDS: *INSULIN REGULAR(HUMULIN R)HUM 100 UNIT/ML VIAL SQ PRN (21:19)
[2023-09-15 23:00] VITALS: BP 117/66; TEMP 99; O2SAT 98
[2023-09-16] MEDS: MEROPENEM 1 G in IV NS 0.9% 100 ML IV SCH (04:05)
[2023-09-16] MEDS: HYDROCODONE/APAP 10/325MG TABLET PO PRN ×2 (05:11→17:44)
[2023-09-16 05:41] LABS: BASOPHILS # (AUTO) 0.1 K/uL (0.0-0.2); BASOPHILS % (AUTO) 1.5 % (0.0-2.0); EOSINOPHILS # (AUTO) 0.2 K/uL (0.0-0.7); EOSINOPHILS % (AUTO) 2.6 % (0.0-6.0); HEMATOCRIT 32 % (39-51); HEMOGLOBIN 10.6 g/dL (13.5-17.5); LYMPHOCYTES # (AUTO) 1.7 K/uL (0.8-4.8); LYMPHOCYTES % (AUTO) 25.4 % (20.0-44.0); MEAN CORPUSCULAR HEMOGLOBIN 30 PG (26.0-33.0); MEAN CORPUSCULAR HGB CONC 33 g/dl (31.0-36.0); MEAN CORPUSCULAR VOLUME 89 fL (80-96); MONOCYTES # (AUTO) 0.5 K/uL (0.1-1.30); MONOCYTES % (AUTO) 7.7 % (2.0-12.0); NEUTROPHILS # (AUTO) 4.3 K/uL (1.8-8.9); NEUTROPHILS % (AUTO) 62.8 % (43.0-81.0); PLATELET COUNT (AUTO) 169 K/uL (150-450); RED CELL DISTRIBUTION WIDTH 15.2 % (11.5-15.0); WHITE BLOOD COUNT (AUTO) 6.9 K/uL (4.3-11.0)
[2023-09-16 05:57] LABS: CALCIUM, SERUM 8.3 mg/dL (8.5-10.1); CREATININE 1.2 mg/dL (0.6-1.3); POTASSIUM 5.2 mmol/L (3.5-5.1)
[2023-09-16] MEDS: BLOOD SUGAR DIAGNOSTIC 1 EACH STRIP IN SCH ×5 (06:24→23:25)
[2023-09-16] MEDS: INSULIN REGULAR, HUMAN 100 UNIT/ML 3 ML VIAL SQ PRN ×4 (06:28→23:27)
[2023-09-16 07:00] VITALS: BP 118/73; TEMP 97.9; O2SAT 95
[2023-09-16] MEDS: PANTOPRAZOLE 40 MG TABLET.DR PO SCH (08:04)
[2023-09-16] MEDS: NICOTINE PATCH (21MG) 21 MG PATCH.TD24 TD SCH (08:29)
[2023-09-16] MEDS: CARVEDILOL 6.25 MG TABLET PO SCH ×2 (08:30→17:01)
[2023-09-16] MEDS: GABAPENTIN 300 MG CAPSULE PO SCH ×2 (08:31→17:02)
[2023-09-16] MEDS: METHADONE HCL 10 MG TABLET PO SCH (08:34)
[2023-09-16] MEDS: buPROPion SR 100 MG TABLET.ER PO SCH (08:34)
[2023-09-16 16:00] VITALS: BP 141/85; TEMP 97.7; O2SAT 96
[2023-09-16 20:00] VITALS: BP 144/89; TEMP 98.8; O2SAT 96
[2023-09-16] MEDS: CIPROFLOXACIN HCL 500 MG TABLET PO SCH (23:10)
[2023-09-17] MEDS: HYDROCODONE/APAP 10/325MG TABLET PO PRN ×2 (05:15→16:54)
[2023-09-17 07:00] VITALS: BP 139/90; TEMP 97.9; O2SAT 96
[2023-09-17] MEDS ORDERED: SODIUM POLYSTYRENE SULFONATE 15 G/60 ML BOTTLE PO ONE (08:00)
[2023-09-17] MEDS: PANTOPRAZOLE 40 MG TABLET.DR PO SCH (08:43)
[2023-09-17] MEDS: buPROPion SR 100 MG TABLET.ER PO SCH (09:33)
[2023-09-17] MEDS: METHADONE HCL 10 MG TABLET PO SCH (09:33)
[2023-09-17] MEDS: GABAPENTIN 300 MG CAPSULE PO SCH ×2 (09:33→16:54)
[2023-09-17] MEDS: CARVEDILOL 6.25 MG TABLET PO SCH ×2 (09:34→16:54)
[2023-09-17] MEDS: NICOTINE PATCH (21MG) 21 MG PATCH.TD24 TD SCH (09:34)
[2023-09-17] MEDS: CIPROFLOXACIN HCL 500 MG TABLET PO SCH ×2 (09:39→21:21)
[2023-09-17 10:12] LABS: CALCIUM, SERUM 7.4 mg/dL (8.5-10.1); POTASSIUM 4.7 mmol/L (3.5-5.1)
[2023-09-17] MEDS: BLOOD SUGAR DIAGNOSTIC 1 EACH STRIP IN SCH ×3 (12:02→21:51)
[2023-09-17] MEDS: INSULIN REGULAR, HUMAN 100 UNIT/ML 3 ML VIAL SQ PRN ×2 (12:05→17:04)
[2023-09-17 16:00] VITALS: BP 126/60; TEMP 97.7; O2SAT 98
[2023-09-17 20:00] VITALS: BP 125/76; TEMP 97.8; O2SAT 96
[2023-09-17] MEDS: *INSULIN REGULAR(HUMULIN R)HUM 100 UNIT/ML VIAL SQ PRN (21:54)
[2023-09-18] MEDS: HYDROCODONE/APAP 10/325MG TABLET PO PRN ×3 (05:47→21:11)
[2023-09-18] MEDS: BLOOD SUGAR DIAGNOSTIC 1 EACH STRIP IN SCH ×4 (06:37→22:00)
[2023-09-18] MEDS: INSULIN REGULAR, HUMAN 100 UNIT/ML 3 ML VIAL SQ PRN ×3 (06:37→17:12)
[2023-09-18] MEDS: PANTOPRAZOLE 40 MG TABLET.DR PO SCH (08:09)
[2023-09-18] MEDS: NICOTINE PATCH (21MG) 21 MG PATCH.TD24 TD SCH (09:01)
[2023-09-18] MEDS: METHADONE HCL 10 MG TABLET PO SCH (09:05)
[2023-09-18] MEDS: buPROPion SR 100 MG TABLET.ER PO SCH (09:06)
[2023-09-18] MEDS: GABAPENTIN 300 MG CAPSULE PO SCH ×2 (09:06→16:52)
[2023-09-18] MEDS: CIPROFLOXACIN HCL 500 MG TABLET PO SCH ×2 (09:07→21:00)
[2023-09-18] MEDS: CARVEDILOL 6.25 MG TABLET PO SCH ×2 (09:07→16:52)
[2023-09-18 09:08] VITALS: BP 147/74; TEMP 98; O2SAT 99
[2023-09-18] MEDS: FUROSEMIDE 40 MG/4 ML VIAL IV SCH ×2 (09:55→21:01)
[2023-09-18 16:35] VITALS: BP 130/58; TEMP 97.8; O2SAT 99
[2023-09-18 20:00] VITALS: BP 121/64; TEMP 98.4; O2SAT 99
[2023-09-18 21:56] VITALS: BP 121/64; TEMP 98.4; O2SAT 99
[2023-09-18] MEDS: *INSULIN REGULAR(HUMULIN R)HUM 100 UNIT/ML VIAL SQ PRN (23:05)
[2023-09-19] MEDS: HYDROCODONE/APAP 10/325MG TABLET PO PRN (03:41)
[2023-09-19] MEDS: INSULIN REGULAR, HUMAN 100 UNIT/ML 3 ML VIAL SQ PRN ×3 (06:35→22:55)
[2023-09-19] MEDS: BLOOD SUGAR DIAGNOSTIC 1 EACH STRIP IN SCH ×4 (06:36→22:51)
[2023-09-19 06:58] LABS: BASOPHILS % (AUTO) 0.6 % (0.0-2.0); EOSINOPHILS # (AUTO) 0.2 K/uL (0.0-0.7); EOSINOPHILS % (AUTO) 3.6 % (0.0-6.0); HEMATOCRIT 28 % (39-51); HEMOGLOBIN 9.4 g/dL (13.5-17.5); LYMPHOCYTES # (AUTO) 1.5 K/uL (0.8-4.8); LYMPHOCYTES % (AUTO) 26.3 % (20.0-44.0); MEAN CORPUSCULAR HEMOGLOBIN 30 PG (26.0-33.0); MEAN CORPUSCULAR HGB CONC 33 g/dl (31.0-36.0); MEAN CORPUSCULAR VOLUME 89 fL (80-96); MONOCYTES # (AUTO) 0.6 K/uL (0.1-1.30); MONOCYTES % (AUTO) 11.1 % (2.0-12.0); NEUTROPHILS # (AUTO) 3.3 K/uL (1.8-8.9); NEUTROPHILS % (AUTO) 58.4 % (43.0-81.0); PLATELET COUNT (AUTO) 116 K/uL (150-450); RED BLOOD CELL COUNT(AUTO) 3.19 MIL/uL (4.5-6.0); RED CELL DISTRIBUTION WIDTH 15.2 % (11.5-15.0); WHITE BLOOD COUNT (AUTO) 5.7 K/uL (4.3-11.0)
[2023-09-19 07:22] LABS: CALCIUM, SERUM 8.4 mg/dL (8.5-10.1); CREATININE 1.3 mg/dL (0.6-1.3); POTASSIUM 4.6 mmol/L (3.5-5.1)
[2023-09-19 08:42] VITALS: BP 102/109; TEMP 98.9; O2SAT 99
[2023-09-19] MEDS: METHADONE HCL 10 MG TABLET PO SCH (08:50)
[2023-09-19] MEDS: CIPROFLOXACIN HCL 500 MG TABLET PO SCH ×2 (08:50→21:17)
[2023-09-19] MEDS: NICOTINE PATCH (21MG) 21 MG PATCH.TD24 TD SCH (08:50)
[2023-09-19] MEDS: GABAPENTIN 300 MG CAPSULE PO SCH ×2 (08:51→18:22)
[2023-09-19] MEDS: PANTOPRAZOLE 40 MG TABLET.DR PO SCH (08:51)
[2023-09-19] MEDS: buPROPion SR 100 MG TABLET.ER PO SCH (08:51)
[2023-09-19] MEDS: CARVEDILOL 6.25 MG TABLET PO SCH ×2 (08:52→18:23)
[2023-09-19] MEDS: FUROSEMIDE 40 MG/4 ML VIAL IV SCH ×3 (08:52→21:24)
[2023-09-19] MEDS: HYDROCODONE/APAP 5/325MG TABLET PO PRN ×2 (15:56→21:18)
[2023-09-19 20:00] VITALS: BP 137/62; TEMP 97.5; O2SAT 99
[2023-09-20] MEDS: BLOOD SUGAR DIAGNOSTIC 1 EACH STRIP IN SCH ×4 (06:36→21:08)
[2023-09-20] MEDS: INSULIN REGULAR, HUMAN 100 UNIT/ML 3 ML VIAL SQ PRN ×3 (06:39→17:29)
[2023-09-20] MEDS: PANTOPRAZOLE 40 MG TABLET.DR PO SCH (06:43)
[2023-09-20] MEDS: HYDROCODONE/APAP 5/325MG TABLET PO PRN ×4 (06:44→20:37)
[2023-09-20 07:23] LABS: BASOPHILS # (AUTO) 0.1 K/uL (0.0-0.2); BASOPHILS % (AUTO) 1.3 % (0.0-2.0); EOSINOPHILS # (AUTO) 0.2 K/uL (0.0-0.7); HEMATOCRIT 29 % (39-51); HEMOGLOBIN 9.7 g/dL (13.5-17.5); LYMPHOCYTES # (AUTO) 1.4 K/uL (0.8-4.8); LYMPHOCYTES % (AUTO) 26.6 % (20.0-44.0); MEAN CORPUSCULAR HEMOGLOBIN 30 PG (26.0-33.0); MEAN CORPUSCULAR HGB CONC 33 g/dl (31.0-36.0); MEAN CORPUSCULAR VOLUME 90 fL (80-96); MONOCYTES # (AUTO) 0.5 K/uL (0.1-1.30); MONOCYTES % (AUTO) 10.2 % (2.0-12.0); NEUTROPHILS % (AUTO) 57.9 % (43.0-81.0); PLATELET COUNT (AUTO) 110 K/uL (150-450); RED BLOOD CELL COUNT(AUTO) 3.23 MIL/uL (4.5-6.0); RED CELL DISTRIBUTION WIDTH 15.4 % (11.5-15.0); WHITE BLOOD COUNT (AUTO) 5.2 K/uL (4.3-11.0)
[2023-09-20 07:30] VITALS: BP 109/57; TEMP 98.8; O2SAT 98
[2023-09-20 07:40] LABS: CALCIUM, SERUM 8.4 mg/dL (8.5-10.1); CREATININE 1.4 mg/dL (0.6-1.3); POTASSIUM 4.7 mmol/L (3.5-5.1)
[2023-09-20] MEDS: CIPROFLOXACIN HCL 500 MG TABLET PO SCH (08:53)
[2023-09-20] MEDS: buPROPion SR 100 MG TABLET.ER PO SCH (08:53)
[2023-09-20] MEDS: GABAPENTIN 300 MG CAPSULE PO SCH ×2 (08:53→16:19)
[2023-09-20] MEDS: METHADONE HCL 10 MG TABLET PO SCH (08:53)
[2023-09-20] MEDS: FUROSEMIDE 40 MG/4 ML VIAL IV SCH ×2 (08:54→20:37)
[2023-09-20] MEDS: NICOTINE PATCH (21MG) 21 MG PATCH.TD24 TD SCH (08:54)
[2023-09-20] MEDS: CARVEDILOL 6.25 MG TABLET PO SCH ×2 (09:00→16:19)
[2023-09-20 16:00] VITALS: BP 111/63; TEMP 98.1; O2SAT 94
[2023-09-20 20:37] VITALS: BP 115/46; TEMP 97.9; O2SAT 97
[2023-09-20] MEDS: *INSULIN REGULAR(HUMULIN R)HUM 100 UNIT/ML VIAL SQ PRN (21:08)
[2023-09-21] MEDS: HYDROCODONE/APAP 5/325MG TABLET PO PRN ×3 (05:26→22:01)
[2023-09-21] MEDS: BLOOD SUGAR DIAGNOSTIC 1 EACH STRIP IN SCH ×4 (06:40→21:59)
[2023-09-21] MEDS: INSULIN REGULAR, HUMAN 100 UNIT/ML 3 ML VIAL SQ PRN ×3 (06:44→17:00)
[2023-09-21 07:22] LABS: BASOPHILS # (AUTO) 0.1 K/uL (0.0-0.2); BASOPHILS % (AUTO) 1.1 % (0.0-2.0); EOSINOPHILS # (AUTO) 0.2 K/uL (0.0-0.7); EOSINOPHILS % (AUTO) 4.3 % (0.0-6.0); HEMATOCRIT 27 % (39-51); HEMOGLOBIN 9.2 g/dL (13.5-17.5); LYMPHOCYTES # (AUTO) 1.5 K/uL (0.8-4.8); LYMPHOCYTES % (AUTO) 27.5 % (20.0-44.0); MEAN CORPUSCULAR HEMOGLOBIN 30 PG (26.0-33.0); MEAN CORPUSCULAR HGB CONC 34 g/dl (31.0-36.0); MEAN CORPUSCULAR VOLUME 89 fL (80-96); MONOCYTES # (AUTO) 0.6 K/uL (0.1-1.30); MONOCYTES % (AUTO) 11.3 % (2.0-12.0); NEUTROPHILS # (AUTO) 3.1 K/uL (1.8-8.9); NEUTROPHILS % (AUTO) 55.8 % (43.0-81.0); PLATELET COUNT (AUTO) 102 K/uL (150-450); RED BLOOD CELL COUNT(AUTO) 3.06 MIL/uL (4.5-6.0); WHITE BLOOD COUNT (AUTO) 5.5 K/uL (4.3-11.0)
[2023-09-21] MEDS: PANTOPRAZOLE 40 MG TABLET.DR PO SCH (07:51)
[2023-09-21 08:19] LABS: CALCIUM, SERUM 8.5 mg/dL (8.5-10.1); CREATININE 1.4 mg/dL (0.6-1.3); POTASSIUM 4.6 mmol/L (3.5-5.1)
[2023-09-21 09:01] VITALS: BP 115/65; TEMP 98.6; O2SAT 98
[2023-09-21] MEDS: FUROSEMIDE 40 MG/4 ML VIAL IV SCH ×2 (09:11→20:27)
[2023-09-21] MEDS: METHADONE HCL 10 MG TABLET PO SCH (09:18)
[2023-09-21] MEDS: buPROPion SR 100 MG TABLET.ER PO SCH (09:18)
[2023-09-21] MEDS: GABAPENTIN 300 MG CAPSULE PO SCH ×2 (09:18→16:46)
[2023-09-21] MEDS: NICOTINE PATCH (21MG) 21 MG PATCH.TD24 TD SCH (09:20)
[2023-09-21] MEDS: CARVEDILOL 6.25 MG TABLET PO SCH ×2 (09:20→16:47)
[2023-09-21] MEDS: HYDROCODONE/APAP 10/325MG TABLET PO PRN (11:48)
[2023-09-21 20:00] VITALS: BP 119/65; TEMP 98.5; O2SAT 100
[2023-09-21] MEDS: *INSULIN REGULAR(HUMULIN R)HUM 100 UNIT/ML VIAL SQ PRN (22:01)
[2023-09-22] MEDS: HYDROCODONE/APAP 5/325MG TABLET PO PRN (04:04)
[2023-09-22] MEDS: BLOOD SUGAR DIAGNOSTIC 1 EACH STRIP IN SCH ×4 (06:55→22:45)
[2023-09-22] MEDS: INSULIN REGULAR, HUMAN 100 UNIT/ML 3 ML VIAL SQ PRN ×4 (06:56→22:59)
[2023-09-22 07:00] VITALS: BP 106/51; TEMP 98.4; O2SAT 94
[2023-09-22 07:14] LABS: BASOPHILS # (AUTO) 0.1 K/uL (0.0-0.2); BASOPHILS % (AUTO) 1.1 % (0.0-2.0); EOSINOPHILS # (AUTO) 0.2 K/uL (0.0-0.7); EOSINOPHILS % (AUTO) 4.2 % (0.0-6.0); HEMATOCRIT 28 % (39-51); HEMOGLOBIN 9.4 g/dL (13.5-17.5); LYMPHOCYTES # (AUTO) 1.6 K/uL (0.8-4.8); LYMPHOCYTES % (AUTO) 30.4 % (20.0-44.0); MEAN CORPUSCULAR HEMOGLOBIN 30 PG (26.0-33.0); MEAN CORPUSCULAR HGB CONC 34 g/dl (31.0-36.0); MEAN CORPUSCULAR VOLUME 89 fL (80-96); MONOCYTES # (AUTO) 0.6 K/uL (0.1-1.30); MONOCYTES % (AUTO) 11.2 % (2.0-12.0); NEUTROPHILS # (AUTO) 2.8 K/uL (1.8-8.9); NEUTROPHILS % (AUTO) 53.1 % (43.0-81.0); PLATELET COUNT (AUTO) 110 K/uL (150-450); RED BLOOD CELL COUNT(AUTO) 3.11 MIL/uL (4.5-6.0); RED CELL DISTRIBUTION WIDTH 15.5 % (11.5-15.0); WHITE BLOOD COUNT (AUTO) 5.2 K/uL (4.3-11.0)
[2023-09-22 07:28] LABS: CALCIUM, SERUM 8.5 mg/dL (8.5-10.1); CREATININE 1.4 mg/dL (0.6-1.3); POTASSIUM 4.8 mmol/L (3.5-5.1)
[2023-09-22] MEDS: PANTOPRAZOLE 40 MG TABLET.DR PO SCH (08:10)
[2023-09-22] MEDS: METHADONE HCL 10 MG TABLET PO SCH (09:47)
[2023-09-22] MEDS: buPROPion SR 100 MG TABLET.ER PO SCH (09:47)
[2023-09-22] MEDS: GABAPENTIN 300 MG CAPSULE PO SCH ×2 (09:47→17:34)
[2023-09-22] MEDS: FUROSEMIDE 40 MG/4 ML VIAL IV SCH ×2 (09:48→21:27)
[2023-09-22] MEDS: NICOTINE PATCH (21MG) 21 MG PATCH.TD24 TD SCH (09:48)
[2023-09-22] MEDS: CARVEDILOL 6.25 MG TABLET PO SCH ×2 (10:18→18:20)
[2023-09-22] MEDS: HYDROCODONE/APAP 10/325MG TABLET PO PRN (13:13)
[2023-09-22 16:00] VITALS: BP 97/51; TEMP 98.6; O2SAT 99
[2023-09-22 20:00] VITALS: BP 107/58; TEMP 98.1; O2SAT 99
[2023-09-23] MEDS: HYDROCODONE/APAP 10/325MG TABLET PO PRN ×2 (02:01→14:43)
[2023-09-23] MEDS: BLOOD SUGAR DIAGNOSTIC 1 EACH STRIP IN SCH ×4 (06:30→21:27)
[2023-09-23] MEDS: INSULIN REGULAR, HUMAN 100 UNIT/ML 3 ML VIAL SQ PRN (06:33)
[2023-09-23 07:00] VITALS: BP 136/80; TEMP 98.4; O2SAT 100
[2023-09-23] MEDS: FUROSEMIDE 40 MG/4 ML VIAL IV SCH ×2 (09:37→20:11)
[2023-09-23] MEDS: NICOTINE PATCH (21MG) 21 MG PATCH.TD24 TD SCH (09:37)
[2023-09-23] MEDS: PANTOPRAZOLE 40 MG TABLET.DR PO SCH (09:38)
[2023-09-23] MEDS: METHADONE HCL 10 MG TABLET PO SCH (09:38)
[2023-09-23] MEDS: CARVEDILOL 6.25 MG TABLET PO SCH ×2 (09:39→17:00)
[2023-09-23] MEDS: buPROPion SR 100 MG TABLET.ER PO SCH (09:39)
[2023-09-23] MEDS: GABAPENTIN 300 MG CAPSULE PO SCH ×2 (09:39→18:18)
[2023-09-23 16:00] VITALS: BP 105/50; TEMP 98.6; O2SAT 98
[2023-09-23 20:00] VITALS: BP 119/81; TEMP 98.1; O2SAT 96
[2023-09-23] MEDS: *INSULIN REGULAR(HUMULIN R)HUM 100 UNIT/ML VIAL SQ PRN (21:31)
[2023-09-24] MEDS: HYDROCODONE/APAP 10/325MG TABLET PO PRN ×3 (02:40→18:00)
[2023-09-24 04:00] VITALS: BP 106/57; TEMP 97.8; O2SAT 98
[2023-09-24] MEDS: BLOOD SUGAR DIAGNOSTIC 1 EACH STRIP IN SCH ×4 (06:34→22:07)
[2023-09-24] MEDS: INSULIN REGULAR, HUMAN 100 UNIT/ML 3 ML VIAL SQ PRN ×2 (06:34→18:04)
[2023-09-24 08:00] VITALS: BP 112/64; TEMP 98.2; O2SAT 99
[2023-09-24] MEDS: NICOTINE PATCH (21MG) 21 MG PATCH.TD24 TD SCH (09:08)
[2023-09-24] MEDS: FUROSEMIDE 40 MG/4 ML VIAL IV SCH ×2 (09:08→20:32)
[2023-09-24] MEDS: METHADONE HCL 10 MG TABLET PO SCH (09:08)
[2023-09-24] MEDS: buPROPion SR 100 MG TABLET.ER PO SCH (09:09)
[2023-09-24] MEDS: GABAPENTIN 300 MG CAPSULE PO SCH ×2 (09:09→17:55)
[2023-09-24] MEDS: PANTOPRAZOLE 40 MG TABLET.DR PO SCH (09:09)
[2023-09-24] MEDS: CARVEDILOL 6.25 MG TABLET PO SCH ×2 (09:10→17:00)
[2023-09-24 13:29] LABS: ALBUMIN 1.5 g/dL (3.4-5.0); BILIRUBIN,TOTAL 0.3 mg/dL (0.2-1.0); CALCIUM, SERUM 8.6 mg/dL (8.5-10.1); CREATININE 1.2 mg/dL (0.6-1.3); POTASSIUM 4.2 mmol/L (3.5-5.1)
[2023-09-24 16:00] VITALS: BP 104/63; TEMP 97.8; O2SAT 99
[2023-09-24 20:30] VITALS: BP 117/77; TEMP 98; O2SAT 97
[2023-09-24] MEDS: *INSULIN REGULAR(HUMULIN R)HUM 100 UNIT/ML VIAL SQ PRN (22:11)
[2023-09-25] MEDS: HYDROCODONE/APAP 10/325MG TABLET PO PRN ×2 (02:35→15:11)
[2023-09-25] MEDS: BLOOD SUGAR DIAGNOSTIC 1 EACH STRIP IN SCH ×4 (06:33→21:27)
[2023-09-25] MEDS: INSULIN REGULAR, HUMAN 100 UNIT/ML 3 ML VIAL SQ PRN (06:34)
[2023-09-25 08:00] VITALS: BP 129/67; TEMP 97.9; O2SAT 98
[2023-09-25 08:05] LABS: BASOPHILS % (AUTO) 0.6 % (0.0-2.0); EOSINOPHILS # (AUTO) 0.3 K/uL (0.0-0.7); HEMATOCRIT 30 % (39-51); HEMOGLOBIN 9.7 g/dL (13.5-17.5); LYMPHOCYTES # (AUTO) 1.4 K/uL (0.8-4.8); LYMPHOCYTES % (AUTO) 27.9 % (20.0-44.0); MEAN CORPUSCULAR HEMOGLOBIN 29 PG (26.0-33.0); MEAN CORPUSCULAR HGB CONC 33 g/dl (31.0-36.0); MEAN CORPUSCULAR VOLUME 89 fL (80-96); MONOCYTES # (AUTO) 0.6 K/uL (0.1-1.30); MONOCYTES % (AUTO) 11.5 % (2.0-12.0); NEUTROPHILS # (AUTO) 2.8 K/uL (1.8-8.9); PLATELET COUNT (AUTO) 146 K/uL (150-450); RED BLOOD CELL COUNT(AUTO) 3.32 MIL/uL (4.5-6.0); RED CELL DISTRIBUTION WIDTH 15.2 % (11.5-15.0)
[2023-09-25 08:28] LABS: CALCIUM, SERUM 8.5 mg/dL (8.5-10.1); CREATININE 1.1 mg/dL (0.6-1.3); MAGNESIUM 1.9 mg/dL (1.8-2.4); PHOSPHORUS 4.1 mg/dL (2.5-4.9); POTASSIUM 4.3 mmol/L (3.5-5.1)
[2023-09-25 09:19] LABS: ALBUMIN 1.6 g/dL (3.4-5.0); BILIRUBIN,DIRECT 0.1 mg/dL (0.0-0.2); BILIRUBIN,TOTAL 0.3 mg/dL (0.2-1.0); TOTAL PROTEIN, SERUM 8.1 g/dL (6.4-8.2)
[2023-09-25] MEDS: FUROSEMIDE 40 MG/4 ML VIAL IV SCH (09:24)
[2023-09-25] MEDS: CARVEDILOL 6.25 MG TABLET PO SCH ×2 (09:26→17:28)
[2023-09-25] MEDS: GABAPENTIN 300 MG CAPSULE PO SCH ×2 (09:26→17:28)
[2023-09-25] MEDS: PANTOPRAZOLE 40 MG TABLET.DR PO SCH (09:26)
[2023-09-25] MEDS: METHADONE HCL 10 MG TABLET PO SCH (09:26)
[2023-09-25] MEDS: buPROPion SR 100 MG TABLET.ER PO SCH (09:27)
[2023-09-25] MEDS: NICOTINE PATCH (21MG) 21 MG PATCH.TD24 TD SCH (09:28)
[2023-09-25] MEDS: HYDROCODONE/APAP 5/325MG TABLET PO PRN (09:31)
[2023-09-25 16:00] VITALS: BP 130/65; TEMP 98.2; O2SAT 96
[2023-09-25 20:00] VITALS: BP 148/80; TEMP 98.2; O2SAT 100
[2023-09-25] MEDS: FUROSEMIDE 40 MG TABLET PO SCH (21:21)
[2023-09-25] MEDS: *INSULIN REGULAR(HUMULIN R)HUM 100 UNIT/ML VIAL SQ PRN (21:33)
[2023-09-26] MEDS: HYDROCODONE/APAP 5/325MG TABLET PO PRN (05:59)
[2023-09-26] MEDS: BLOOD SUGAR DIAGNOSTIC 1 EACH STRIP IN SCH ×3 (06:32→17:31)
[2023-09-26] MEDS: INSULIN REGULAR, HUMAN 100 UNIT/ML 3 ML VIAL SQ PRN (06:33)
[2023-09-26] MEDS: PANTOPRAZOLE 40 MG TABLET.DR PO SCH (07:57)
[2023-09-26 08:00] VITALS: BP 121/64; TEMP 98.1; O2SAT 99
[2023-09-26 08:10] LABS: BASOPHILS % (AUTO) 0.7 % (0.0-2.0); EOSINOPHILS # (AUTO) 0.2 K/uL (0.0-0.7); EOSINOPHILS % (AUTO) 5.9 % (0.0-6.0); HEMATOCRIT 30 % (39-51); LYMPHOCYTES # (AUTO) 1.2 K/uL (0.8-4.8); LYMPHOCYTES % (AUTO) 28.1 % (20.0-44.0); MEAN CORPUSCULAR HEMOGLOBIN 30 PG (26.0-33.0); MEAN CORPUSCULAR HGB CONC 34 g/dl (31.0-36.0); MEAN CORPUSCULAR VOLUME 88 fL (80-96); MONOCYTES # (AUTO) 0.5 K/uL (0.1-1.30); NEUTROPHILS # (AUTO) 2.2 K/uL (1.8-8.9); NEUTROPHILS % (AUTO) 53.3 % (43.0-81.0); PLATELET COUNT (AUTO) 143 K/uL (150-450); RED BLOOD CELL COUNT(AUTO) 3.35 MIL/uL (4.5-6.0); RED CELL DISTRIBUTION WIDTH 15.1 % (11.5-15.0); WHITE BLOOD COUNT (AUTO) 4.2 K/uL (4.3-11.0)
[2023-09-26 08:39] LABS: CALCIUM, SERUM 8.6 mg/dL (8.5-10.1); CREATININE 1.1 mg/dL (0.6-1.3); MAGNESIUM 1.9 mg/dL (1.8-2.4); PHOSPHORUS 4.3 mg/dL (2.5-4.9); POTASSIUM 4.2 mmol/L (3.5-5.1)
[2023-09-26] MEDS: NICOTINE PATCH (21MG) 21 MG PATCH.TD24 TD SCH (09:00)
[2023-09-26] MEDS: GABAPENTIN 300 MG CAPSULE PO SCH ×2 (09:01→17:31)
[2023-09-26] MEDS: buPROPion SR 100 MG TABLET.ER PO SCH (09:01)
[2023-09-26] MEDS: METHADONE HCL 10 MG TABLET PO SCH (09:01)
[2023-09-26] MEDS: FUROSEMIDE 40 MG TABLET PO SCH (09:01)
[2023-09-26] MEDS: CARVEDILOL 6.25 MG TABLET PO SCH ×2 (09:02→17:31)
[2023-09-26] MEDS: HYDROCODONE/APAP 10/325MG TABLET PO PRN ×2 (11:06→19:17)
[2023-09-26 12:13] LABS: ALBUMIN 1.5 g/dL (3.4-5.0); BILIRUBIN,TOTAL 0.3 mg/dL (0.2-1.0); CALCIUM, SERUM 8.5 mg/dL (8.5-10.1); CREATININE 1.1 mg/dL (0.6-1.3); POTASSIUM 4.2 mmol/L (3.5-5.1); TOTAL PROTEIN, SERUM 8.1 g/dL (6.4-8.2)
[2023-09-26 16:00] VITALS: BP 132/64; TEMP 98.4; O2SAT 97
[2023-09-26 17:31] VITALS: BP 130/62
== END 2023-09-26 19:50 | DRG 720 ==
LOC: ER 21:14 → MED 09-06 01:02
PROVIDERS: ADMIT Internal Medicine; ATTEND Nurse Practitioner Acute Care
PROC: 0JBF0ZZ Excision of Left Upper Arm Subcutaneous Tissue and Fascia, Open Approach (ICD-10-PCS; principal; 2023-09-06)
PROC: 0J9D3ZZ Drainage of Right Upper Arm Subcutaneous Tissue and Fascia, Percutaneous Approach (ICD-10-PCS; 2023-09-06)
PROC: 05HY33Z Insertion of Infusion Device into Upper Vein, Percutaneous Approach (ICD-10-PCS; 2023-09-11)
DX: A41.9 Sepsis, unspecified organism (principal); E43 Unspecified severe protein-calorie malnutrition; N17.9 Acute kidney failure, unspecified; E11.40 Type 2 diabetes mellitus with diabetic neuropathy, unspecified; E22.2 Syndrome of inappropriate secretion of antidiuretic hormone; E88.09 Other disorders of plasma-protein metabolism, not elsewhere classified; N39.0 Urinary tract infection, site not specified; I50.9 Heart failure, unspecified; B96.20 Unspecified Escherichia coli [E. coli] as the cause of diseases classified elsewhere; I11.0 Hypertensive heart disease with heart failure; E86.9 Volume depletion, unspecified; D64.9 Anemia, unspecified; Z68.44 Body mass index [BMI] 60.0-69.9, adult; E11.65 Type 2 diabetes mellitus with hyperglycemia; L02.413 Cutaneous abscess of right upper limb; L02.414 Cutaneous abscess of left upper limb; Z59.00 Homelessness unspecified; E66.01 Morbid (severe) obesity due to excess calories; L03.113 Cellulitis of right upper limb; L03.114 Cellulitis of left upper limb; G89.4 Chronic pain syndrome; Z99.3 Dependence on wheelchair; E87.5 Hyperkalemia; M89.8X9 Other specified disorders of bone, unspecified site; N25.89 Other disorders resulting from impaired renal tubular function; L98.8 Other specified disorders of the skin and subcutaneous tissue; N50.82 Scrotal pain; N50.89 Other specified disorders of the male genital organs; Z79.84 Long term (current) use of oral hypoglycemic drugs; F19.11 Other psychoactive substance abuse, in remission; F11.20 Opioid dependence, uncomplicated
CPT/HCPCS: 36410; 36415; 71045-TC; 76870-TC; 80048-TC; 80053-TC; 80061-TC; 80076-TC; 80202-TC; 81001; 82962-TC; 83605-TC; 83735-TC; 84100-TC; 84132-TC; 84443-TC; 84484-TC; 84550-TC; 85025-TC; 85730-TC; 87040-TC; 87086-TC; 93307-TC; 97110-TC; 97530-TC; 97535-TC; A4223; A6253; A6403; A6407; G0378; J0692; J1815; J1940; J2185; J3370; J3490; J7030; J7040; J7060

== ENCOUNTER 2024-07-06 01:22 | Inpatient (IN) | payer MEDICAID, OTHER ==
[~2024-07-06] VITALS: Ht 167.6 cm; Wt 132.4 kg
[~2024-07-06 01:22] MED LIST: ALBU18HF2 INH; BUPR200T3 PO; CARV6.252 PO; CIPR-262 PO; FLUO20CA36 PO; FURO40TA5 PO; GABA600T12 PO; LISI20TA30 PO; METF-440 PO; METH10TA2 PO; OMEP40CA21 PO; SULF1TAB48 PO
[2024-07-06] MEDS ORDERED: VANCOMYCIN 1 GM /D5W 250 ML PB IV ONE (01:54)
[2024-07-06] MEDS: IV NS 0.9% 1,000 ML BAG IV ONE ×2 (01:59→02:59)
[2024-07-06] MEDS: VANCOMYCIN 1 GM in IV D5W 250 ML IV ONE (02:14)
[2024-07-06 02:22] LABS: BASOPHILS # (AUTO) 0.1 K/uL (0.0-0.2); BASOPHILS % (AUTO) 1.2 % (0.0-2.0); EOSINOPHILS # (AUTO) 0.2 K/uL (0.0-0.7); EOSINOPHILS % (AUTO) 2.1 % (0.0-6.0); HEMATOCRIT 36 % (39-51); HEMOGLOBIN 11.8 g/dL (13.5-17.5); LYMPHOCYTES # (AUTO) 2.8 K/uL (0.8-4.8); LYMPHOCYTES % (AUTO) 34.9 % (20.0-44.0); MEAN CORPUSCULAR HEMOGLOBIN 29 PG (26.0-33.0); MEAN CORPUSCULAR HGB CONC 33 g/dl (31.0-36.0); MEAN CORPUSCULAR VOLUME 86 fL (80-96); MONOCYTES # (AUTO) 0.8 K/uL (0.1-1.30); MONOCYTES % (AUTO) 9.6 % (2.0-12.0); NEUTROPHILS # (AUTO) 4.1 K/uL (1.8-8.9); NEUTROPHILS % (AUTO) 52.2 % (43.0-81.0); PLATELET COUNT (AUTO) 281 K/uL (150-450); RED BLOOD CELL COUNT(AUTO) 4.13 MIL/uL (4.5-6.0); WHITE BLOOD COUNT (AUTO) 7.9 K/uL (4.3-11.0)
[2024-07-06 02:26] LABS: CALCIUM, SERUM 9.1 mg/dL (8.5-10.1); CARBON DIOXIDE 27 mmol/L (21-32); CHLORIDE 102 mmol/L (98-107); CREATININE 1.9 mg/dL (0.6-1.3); GLUCOSE 170 mg/dL (74-106); POTASSIUM 4.8 mmol/L (3.5-5.1); SODIUM SERUM 138 mmol/L (136-145); UREA NITROGEN, BLOOD 46 mg/dL (7-18)
[2024-07-06 02:34] LABS: INR 1.15 (0.91-1.10); PROTHROMBIN TIME 12.1 SECS (9.2-11.1)
[2024-07-06 02:40] LABS: LACTIC ACID 2.8 mmol/L (0.4-2.0)
[2024-07-06] MEDS ORDERED: MAGNESIUM HYDROXIDE 30 ML UDC PO PRN (03:30)
[2024-07-06] MEDS ORDERED: ZOLPIDEM TARTRATE 5 MG TABLET PO PRN (03:30)
[2024-07-06] MEDS ORDERED: MAG HYDROX/AL HYDROX/SIMETH 30 ML UDC PO PRN (03:30)
[2024-07-06] MEDS ORDERED: ONDANSETRON HCL/PF 4 MG/2 ML VIAL IVP PRN (03:30)
[2024-07-06] MEDS ORDERED: ACETAMINOPHEN 325 MG TABLET PO PRN (03:30)
[2024-07-06 04:20] VITALS: BP 121/64; TEMP 96.9; O2SAT 100
[2024-07-06] MEDS: IV NS 0.9% 1,000 ML IV PRN (05:21)
[2024-07-06] MEDS ORDERED: PROP15DR EACHEYE (07:43)
[2024-07-06] MEDS ORDERED: OLAN5TAB3 PO (07:43)
[2024-07-06] MEDS ORDERED: BUPR-96 PO (07:43)
[2024-07-06] MEDS ORDERED: LISI10TA29 PO (07:43)
[2024-07-06] MEDS ORDERED: IBUP-1955 PO (07:43)
[2024-07-06] MEDS ORDERED: LORA-259 PO (07:43)
[2024-07-06 10:49] LABS: BILIRUBIN,DIRECT 0.2 mg/dL (0.0-0.2); BILIRUBIN,TOTAL 0.5 mg/dL (0.2-1.0)
[2024-07-06] MEDS: VANCOMYCIN 500 MG in IV D5W 100 ML IV ONE (10:49)
[2024-07-06] MEDS: PANTOPRAZOLE 40 MG TABLET.DR PO SCH (10:49)
[2024-07-06] MEDS: THERAHONEY GEL 1.5 OZ TUBE TP SCH (10:50)
[2024-07-06] MEDS: Z GUARD REMEDY 4 OZ OINT TP PRN (10:50)
[2024-07-06 10:55] LABS: CALCIUM, SERUM 8.1 mg/dL (8.5-10.1); CREATININE 1.4 mg/dL (0.6-1.3); MAGNESIUM 1.8 mg/dL (1.8-2.4); PHOSPHORUS 3.9 mg/dL (2.5-4.9); POTASSIUM 3.9 mmol/L (3.5-5.1)
[2024-07-06 11:30] LABS: LACTIC ACID REFLEX 2.2 mmol/L (0.4-1.9)
[2024-07-06] MEDS ORDERED: ALBUTEROL FS 2.5 MG/3 ML VIAL.NEB NEB PRN (15:30)
[2024-07-06 16:00] VITALS: BP 115/59; TEMP 98.1; O2SAT 97
[2024-07-06] MEDS ORDERED: LORAZEPAM 1 MG TABLET PO PRN (16:00)
[2024-07-06] MEDS: NYSTATIN TOP POWDER 15 GM BOTTLE TP SCH (16:39)
[2024-07-06] MEDS: OLANZAPINE 5 MG TABLET PO SCH (16:39)
[2024-07-06] MEDS: LORAZEPAM 1 MG TABLET PO PRN (16:39)
[2024-07-06] MEDS: BACLOFEN (10 MG) 10 MG TABLET PO SCH (16:39)
[2024-07-06] MEDS: GABAPENTIN 300 MG CAPSULE PO SCH (16:39)
[2024-07-06 20:00] VITALS: BP 94/52; TEMP 98.3; O2SAT 99
[2024-07-07] MEDS: VANCOMYCIN HCL 1.25 GM in IV D5W 250 ML IV SCH ×2 (05:12→17:28)
[2024-07-07] MEDS ORDERED: Medication Not On Formulary EA (Omeprazole 40 MG) PO SCH (07:30)
[2024-07-07 08:00] VITALS: BP 114/47; TEMP 98.6; O2SAT 98
[2024-07-07] MEDS: BUPROPION XL 150 MG TAB.ER.24 PO SCH (08:54)
[2024-07-07] MEDS: LISINOPRIL (10MG) 10 MG TABLET PO SCH (08:55)
[2024-07-07] MEDS: POLYVINYL ALCOHOL 15 ML BOTTLE EACHEYE SCH (08:56)
[2024-07-07 10:04] LABS: EOSINOPHILS # (AUTO) 0.2 K/uL (0.0-0.7); HEMOGLOBIN 9.6 g/dL (13.5-17.5); LYMPHOCYTES # (AUTO) 1.1 K/uL (0.8-4.8); MEAN CORPUSCULAR HGB CONC 33 g/dl (31.0-36.0); MONOCYTES # (AUTO) 0.4 K/uL (0.1-1.30)
[2024-07-07 10:19] LABS: BASOPHILS % (AUTO) 1.1 % (0.0-2.0); EOSINOPHILS % (AUTO) 4.3 % (0.0-6.0); HEMATOCRIT 29 % (39-51); LYMPHOCYTES % (AUTO) 27.3 % (20.0-44.0); MEAN CORPUSCULAR HEMOGLOBIN 29 PG (26.0-33.0); MEAN CORPUSCULAR VOLUME 87 fL (80-96); MONOCYTES % (AUTO) 10.6 % (2.0-12.0); NEUTROPHILS # (AUTO) 2.3 K/uL (1.8-8.9); NEUTROPHILS % (AUTO) 56.7 % (43.0-81.0); PLATELET COUNT (AUTO) 169 K/uL (150-450); RED BLOOD CELL COUNT(AUTO) 3.35 MIL/uL (4.5-6.0)
[2024-07-07 10:44] LABS: ALBUMIN 1.7 g/dL (3.4-5.0); BILIRUBIN,TOTAL 0.3 mg/dL (0.2-1.0); CALCIUM, SERUM 7.9 mg/dL (8.5-10.1); CREATININE 1.1 mg/dL (0.6-1.3); PHOSPHORUS 2.9 mg/dL (2.5-4.9); POTASSIUM 4.3 mmol/L (3.5-5.1); TOTAL PROTEIN, SERUM 6.7 g/dL (6.4-8.2)
[2024-07-07 14:25] LABS: APPEARANCE,URINE SLIGHTLY CLOUDY (CLEAR); BILIRUBIN,URINE NEGATIVE (NEGATIVE); BLOOD, URINE NEGATIVE Ery/uL (NEGATIVE); COLOR,URINE YELLOW (YELLOW); KETONES,URINE NEGATIVE (NEGATIVE); LEUKOCYTE ESTERASE ,URINE 3+ (NEGATIVE); NITRITE, URINE NEGATIVE (NEGATIVE); PH,URINE >8.5 (5.0-8.0); PROTEIN,URINE 2+ mg/dl (NEGATIVE); UGLUCOSE NEGATIVE (NEGATIVE)
[2024-07-07 14:45] LABS: CREATININE, URINE 63.7 MG/DL (30.0-125.0); URINE TOTAL PROTEIN 94.6 mg/dL (0-11.9)
[2024-07-07 15:16] LABS: ADD URINE CULTURE YES; BACTERIA,URINE Many /HPF (None Seen); RBC,URINE NONE SEEN /HPF (0-2)
[2024-07-07 15:17] LABS: TRIPLE PHOSPHATE CRYSTAL,UR Moderate /HPF (None Seen)
[2024-07-07 15:19] LABS: EOSINOPHIL,URINE None Seen
[2024-07-07 15:57] VITALS: BP 93/56; TEMP 98.2; O2SAT 99
[2024-07-07] MEDS: ARGININE/GLUTAMINE/CALCIUM BMB 1 EACH POWD.PACK PO SCH (17:25)
[2024-07-07 22:02] VITALS: BP 128/71; TEMP 97.9; O2SAT 99
[2024-07-08 06:18] LABS: BASOPHILS % (AUTO) 0.8 % (0.0-2.0); EOSINOPHILS # (AUTO) 0.1 K/uL (0.0-0.7); EOSINOPHILS % (AUTO) 3.2 % (0.0-6.0); HEMATOCRIT 31 % (39-51); HEMOGLOBIN 10.4 g/dL (13.5-17.5); LYMPHOCYTES # (AUTO) 1.2 K/uL (0.8-4.8); LYMPHOCYTES % (AUTO) 27.8 % (20.0-44.0); MEAN CORPUSCULAR HEMOGLOBIN 29 PG (26.0-33.0); MEAN CORPUSCULAR HGB CONC 33 g/dl (31.0-36.0); MEAN CORPUSCULAR VOLUME 87 fL (80-96); MONOCYTES # (AUTO) 0.4 K/uL (0.1-1.30); MONOCYTES % (AUTO) 9.7 % (2.0-12.0); NEUTROPHILS # (AUTO) 2.6 K/uL (1.8-8.9); NEUTROPHILS % (AUTO) 58.5 % (43.0-81.0); PLATELET COUNT (AUTO) 184 K/uL (150-450); RED BLOOD CELL COUNT(AUTO) 3.59 MIL/uL (4.5-6.0); WHITE BLOOD COUNT (AUTO) 4.4 K/uL (4.3-11.0)
[2024-07-08 06:21] LABS: CALCIUM, SERUM 8.2 mg/dL (8.5-10.1); CREATININE 0.9 mg/dL (0.6-1.3); POTASSIUM 4.2 mmol/L (3.5-5.1)
[2024-07-08 07:00] VITALS: BP 125/67; TEMP 97.9; O2SAT 99
[2024-07-08] MEDS ORDERED: *INSULIN REGULAR(HUMULIN R)HUM 100 UNIT/ML VIAL SQ PRN (08:00)
[2024-07-08] MEDS ORDERED: DEXTROSE 50%-WATER 50 ML DISP.SYRIN IV PRN (08:00)
[2024-07-08 08:06] LABS: PTH, INTACT 38 pg/mL (15-65)
[2024-07-08] MEDS: BLOOD SUGAR DIAGNOSTIC 1 EACH STRIP IN SCH (11:17)
[2024-07-08] MEDS: INSULIN REGULAR, HUMAN 100 UNIT/ML 3 ML VIAL SQ PRN (11:19)
[2024-07-08] MEDS: VANCOMYCIN 1 GM in IV D5W 250ml IV SCH (13:48)
[2024-07-08 16:00] VITALS: BP 113/57; TEMP 97.9; O2SAT 98
[2024-07-08] MEDS: MUPIROCIN OINT 2% 22 GM TUBE TP SCH (19:30)
[2024-07-08 20:20] VITALS: BP 128/73; TEMP 97.9; O2SAT 97
[2024-07-09 06:55] LABS: BASOPHILS % (AUTO) 0.9 % (0.0-2.0); EOSINOPHILS # (AUTO) 0.1 K/uL (0.0-0.7); EOSINOPHILS % (AUTO) 3.3 % (0.0-6.0); HEMATOCRIT 31 % (39-51); HEMOGLOBIN 10.4 g/dL (13.5-17.5); LYMPHOCYTES # (AUTO) 1.4 K/uL (0.8-4.8); LYMPHOCYTES % (AUTO) 33.2 % (20.0-44.0); MEAN CORPUSCULAR HEMOGLOBIN 29 PG (26.0-33.0); MEAN CORPUSCULAR HGB CONC 34 g/dl (31.0-36.0); MEAN CORPUSCULAR VOLUME 87 fL (80-96); MONOCYTES # (AUTO) 0.4 K/uL (0.1-1.30); MONOCYTES % (AUTO) 10.2 % (2.0-12.0); NEUTROPHILS # (AUTO) 2.2 K/uL (1.8-8.9); NEUTROPHILS % (AUTO) 52.4 % (43.0-81.0); PLATELET COUNT (AUTO) 186 K/uL (150-450); RED BLOOD CELL COUNT(AUTO) 3.59 MIL/uL (4.5-6.0); RED CELL DISTRIBUTION WIDTH 16.8 % (11.5-15.0); WHITE BLOOD COUNT (AUTO) 4.3 K/uL (4.3-11.0)
[2024-07-09 07:19] LABS: CALCIUM, SERUM 8.3 mg/dL (8.5-10.1); POTASSIUM 4.2 mmol/L (3.5-5.1)
[2024-07-09 07:30] VITALS: BP 151/80; TEMP 98.4; O2SAT 100
[2024-07-09] MEDS: ACIDOPHILUS/BULGARICUS 1 EACH TAB.CHEW PO SCH (12:24)
[2024-07-09] MEDS ORDERED: AMOX-430 PO (12:55)
[2024-07-09] MEDS ORDERED: NYST15PO3 TP (12:55)
[2024-07-09] MEDS ORDERED: COLL30OI TP (12:55)
[2024-07-09] MEDS ORDERED: BACL10TA PO (12:55)
[2024-07-09] MEDS ORDERED: MUPI22OI7 TP (12:55)
[2024-07-09] MEDS ORDERED: NUTR1PAC14 PO (12:55)
[2024-07-09] MEDS ORDERED: ACID1TAB12 PO (12:55)
[2024-07-09] MEDS: AMOX/CLAVULANATE 875 MG TABLET PO SCH (14:56)
[2024-07-09 16:00] VITALS: BP 144/62; TEMP 98.2; O2SAT 97
== END 2024-07-09 19:40 | disposition home or self-care (01) | DRG 383 ==
LOC: ER 01:27 → MED 03:35
PROVIDERS: ADMIT Nurse Practitioner Acute Care; ATTEND Nurse Practitioner Acute Care
DX: L03.317 Cellulitis of buttock (principal); N17.0 Acute kidney failure with tubular necrosis; L89.323 Pressure ulcer of left buttock, stage 3; E87.20 Acidosis, unspecified; E11.22 Type 2 diabetes mellitus with diabetic chronic kidney disease; E11.40 Type 2 diabetes mellitus with diabetic neuropathy, unspecified; L97.529 Non-pressure chronic ulcer of other part of left foot with unspecified severity; D64.9 Anemia, unspecified; E66.01 Morbid (severe) obesity due to excess calories; Z68.42 Body mass index [BMI] 45.0-49.9, adult; E78.5 Hyperlipidemia, unspecified; G89.4 Chronic pain syndrome; Z79.84 Long term (current) use of oral hypoglycemic drugs; L30.9 Dermatitis, unspecified; M89.8X9 Other specified disorders of bone, unspecified site; N18.9 Chronic kidney disease, unspecified; Z59.00 Homelessness unspecified; I12.9 Hypertensive chronic kidney disease with stage 1 through stage 4 chronic kidney disease, or unspecified chronic kidney disease; Z79.899 Other long term (current) drug therapy; Z99.3 Dependence on wheelchair; L98.8 Other specified disorders of the skin and subcutaneous tissue
CPT/HCPCS: 36415; 76770-TC; 80048-TC; 80053-TC; 80202-TC; 81001; 82247-TC; 82248-TC; 82550-TC; 82570-TC; 82962-TC; 83605-TC; 83735-TC; 83880; 83970; 84100-TC; 84155; 84165; 84300-TC; 85025-TC; 85730-TC; 87040-TC; 87081-TC; 97110-TC; 97530-TC; 97535-TC; 98960; A4223; G0378; J1815; J3370; J7030; J7060